=== PATIENT | female | born 1990 | race Caucasian/White ===

== ENCOUNTER 2016-11-01 14:11 | Emergency (ER) | payer MEDICAID, MEDICARE, OTHER ==
--- NOTE | 2016-11-01 14:34 | EDM.PDOC ---
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 This afternoon, she was going down stairs when she missed a step and fell about 8-10 steps stopping at the landing. There was no LOC. There is some residual pain and stiffness in the neck and midback, with more pain in the R knee. Upon arrival, she is alert, orientated and cooperative, GCS 15. - Related Data Allergies Allergy/AdvReac Type Severity Reaction Status Date / Time haloperidol [From Haldol] Allergy Other Verified 02/17/16 10:20 haloperidol lactate Allergy Other Verified 02/17/16 10:20 [From Haldol] paliperidone [From Invega] Allergy Itching Verified 11/26/15 08:11 sulfamethoxazole Allergy Itching Verified 11/26/15 08:11 [From Bactrim] trimethoprim [From Bactrim] Allergy Itching Verified 11/26/15 08:11 ziprasidone HCl [From Geodon] Allergy Itching Verified 11/26/15 08:11 ziprasidone mesylate Allergy Itching Verified 11/26/15 08:11 [From Geodon] Home Meds: Home Meds Albuterol [Ventolin HFA] 1 - 2 puff INH Q4HR PRN 11/25/15 [History] Cholecalciferol (Vitamin D3) [Vitamin D3] 3,000 unit PO DAILY 11/25/15 [History] Cranberry Extract [Cranberry] 500 mg PO BID 11/25/15 [History] Fluticasone/Salmeterol [Advair Diskus 100-50] 1 puff INH BID 11/25/15 [History] Lactobac No.21/Bifidobact No.6 [Up & Up Probiotic Supplement] 1 each PO DAILY [History] Levonorgestrel [Mirena] 1 each IY ASDIRECTED 11/25/15 [History] Levothyroxine 75 mcg PO ACBREAKFAST 11/25/15 [History] Tornillo Carbonate 600 mg PO BID 11/25/15 [History] Montelukast [Singulair] 10 mg PO BEDTIME 11/25/15 [History] Nystatin 1 each TOP BID 11/25/15 [History] Pantoprazole [ProTONIX] 40 mg PO BIDAC 11/25/15 [History] QUEtiapine [SEROquel] 75 mg PO BID 11/25/15 [History] QUEtiapine [SEROquel] 250 mg PO BEDTIME 11/25/15 [History] Sertraline [Zoloft] 150 mg PO DAILY 11/25/15 [History] busPIRone [Buspar] 20 mg PO TID 11/25/15 [History] diphenhydrAMINE [Benadryl] 50 mg PO BEDTIME 11/25/15 [History] metFORMIN [Glucophage] 500 mg PO BIDMEALS 11/25/15 [History] Loratadine/Pseudoephedrine [Qc Loratadine-D 24Hr Tablet] 10 mg PO DAILY [History] Methylcellulose (with Sugar) [Citrucel] 1 tbsp PO DAILY 02/17/16 [History] Triamcinolone Acetonide [IJD: Triamcinolone Acetonide 0.1% Crm] 1 applic TOP BID PRN 02/17/16 [History] Urea [Ureacin-20] 1 applic TOP DAILY PRN 02/17/16 [History] Acetaminophen [Tylenol] 650 mg PO ASDIRECTED PRN 02/18/16 [History] Acetaminophen with Codeine [Tylenol with Codeine #3 Tablet] 2 each PO Q4HR PRN # 30 tablet 02/18/16 [Rx] Docusate Sodium [Colace] 100 mg PO BID PRN #20 cap 02/18/16 [Rx] Past Medical History HEENT History: Reports: Allergic Rhinitis, Impaired Vision, Other (See Below) Other HEENT History: EXOTROPIA, ASTIGMATISM, MYOPIA Cardiovascular History: Reports: None Respiratory History: Reports: Asthma, Sleep Apnea Gastrointestinal History: Reports: Cholelithiasis, GERD, Other (See Below) Other Gastrointestinal History: CHRONIC RLQ ABD PAIN, DIARRHEA, VOMITING Genitourinary History: Reports: UTI, Recurrent, Other (See Below) Other Genitourinary History: ABNORMAL URINE FINDINGS; HAS HAD IUD PLACEMENT [employer] History: Reports: Polycystic Ovaries Musculoskeletal History: Reports: None Neurological History: Reports: Other (See Below) Other Neuro History: MRI OF BRAIN UNDER SEDATION Psychiatric History: Reports: Bipolar, Schizophrenia, Suicidal Ideation, Other ( See Below) Other Psychiatric History: SCHIZOPHRENIFORM DISORDER, MALINGERING Endocrine/Metabolic History: Reports: Hypothyroidism Hematologic History: Reports: Anemia Immunologic History: Reports: None Oncologic (Cancer) History: Reports: None Dermatologic History: Reports: None - Infectious Disease History Infectious Disease History: Reports: Chicken Pox - Past Surgical History Head Surgeries/Procedures: HEENT Surgical History: Reports: Oral Surgery, Tonsillectomy, Other (See Below) Female Surgical History: Reports: Other (See Below) Social & Family History - Family History Other GI Family History: SEE HX - Tobacco Use Smoking Status *Q: Never Smoker ED ROS GENERAL - Review of Systems Review Of Systems: See Below Constitutional: Reports: No Symptoms HEENT: Reports: No Symptoms Respiratory: Reports: No Symptoms Cardiovascular: Reports: No Symptoms Endocrine: Reports: No Symptoms GI/Abdominal: Reports: No Symptoms : Reports: No Symptoms Musculoskeletal: Reports: Neck Pain (minor stiffness of neck right side), Back Pain (midback pain), Leg Pain (right knee) Skin: Reports: No Symptoms Neurological: Reports: No Symptoms Psychiatric: Reports: No Symptoms Hematologic/Lymphatic: Reports: No Symptoms Immunologic: Reports: No Symptoms ED EXAM, GENERAL - Physical Exam Exam: See Below Exam Limited By: No Limitations General Appearance: Alert, WD/WN, Anxious, Mild Distress Eye Exam: Bilateral Eye: Normal Inspection, PERRL Ears: Normal External Exam, Normal TMs Nose: Normal Inspection Throat/Mouth: Normal Inspection, Normal Oropharynx Head: Atraumatic, Normocephalic Neck: Normal Inspection, Supple, Full Range of Motion, Tender Lateral (mild on the right side) Respiratory/Chest: Lungs Clear, Normal Breath Sounds, Chest Non-Tender Cardiovascular: Regular Rate, Rhythm, No Murmur GI/Abdominal: Normal Bowel Sounds, Soft, Non-Tender, No Organomegaly, No Distention, No Mass, Pelvis Stable (Female) Exam: Deferred Rectal (Female) Exam: Deferred Back Exam: Normal Inspection, Vertebral Tenderness (T11-L1 midline) Extremities: Normal Inspection, Leg Pain (R knee, no joint effusion, no instability to maneuver), Limited Range of Motion Neurological: Alert, Oriented, CN II-XII Intact, No Motor/Sensory Deficits Psychiatric: Normal Affect, Anxious Skin Exam: Warm, Dry, Intact Lymphatic: No Adenopathy Course - Vital Signs Text/Narrative:: Caitlyn remained stable at the [facility] ED. X rays of the cervical spine, thoracic spine, lumbar spine, R hip and R knee were negative for fx or deformity. A contusion to R knee is suspected, and she was fitted with crutches and administered Tylenol 650 for pain. - Orders/Labs/Meds Orders: Active Orders 24 hr Category Date Time Status Cervical Spine 2V or 3V [CR] Stat Exams 11/01/16 14:25 Taken Hip Min 2V or 3V Rt [CR] Stat Exams 11/01/16 14:25 Taken Knee 1V or 2V Rt [CR] Stat Exams 11/01/16 14:25 Taken Lumbar Spine 2 or 3V [CR] Stat Exams 11/01/16 14:25 Taken Thoracic Spine 2V [CR] Stat Exams 11/01/16 14:25 Taken BASIC METABOLIC PANEL,BMP [CHEM] Stat Lab 11/01/16 14:25 Ordered CBC WITH AUTO DIFF [HEME] Stat Lab 11/01/16 14:25 Ordered UA W/MICROSCOPIC [URIN] Stat Lab 11/01/16 14:25 Uncollected Departure - Departure Time of Disposition: 15:25 Disposition: Home, Self-Care 01 Condition: fair Clinical Impression: Contusion, multiple sites - Discharge Information - Problem List & Annotations (1) Contusion, multiple sites SNOMED Code(s): 578302902 Code(s): T14.8 - OTHER INJURY OF UNSPECIFIED BODY REGION Status: Acute Current Visit: Yes Annotation/Comment:: I provided a medical leave from work for her, advised crutches with touch wt bearing and advance as tolerated, and follow up with PCP. - Problem List Review Problem List Initiated/Reviewed/Updated: Yes - My Orders Last 24 Hours: My Active Orders 11/01/16 14:25 Cervical Spine 2V or 3V [CR] Stat Hip Min 2V or 3V Rt [CR] Stat Knee 1V or 2V Rt [CR] Stat Lumbar Spine 2 or 3V [CR] Stat Thoracic Spine 2V [CR] Stat BASIC METABOLIC PANEL,BMP [CHEM] Stat CBC WITH AUTO DIFF [HEME] Stat UA W/MICROSCOPIC [URIN] Stat - Assessment/Plan Last 24 Hours: My Active Orders 11/01/16 14:25 Cervical Spine 2V or 3V [CR] Stat Hip Min 2V or 3V Rt [CR] Stat Knee 1V or 2V Rt [CR] Stat Lumbar Spine 2 or 3V [CR] Stat Thoracic Spine 2V [CR] Stat BASIC METABOLIC PANEL,BMP [CHEM] Stat CBC WITH AUTO DIFF [HEME] Stat UA W/MICROSCOPIC [URIN] Stat Plan: Follow up with PCP.
[2016-11-01] MEDS ORDERED: Acetaminophen 325 MG Tab PO ONE (15:15)
--- NOTE | 2016-11-01 15:29 | CR ---
INDICATION: Fall down flight of stairs. RIGHT KNEE: Frontal and lateral views of the right knee revealed no evidence of a fracture, dislocation, or other significant bone or joint abnormality. PEPITO
--- NOTE | 2016-11-01 15:30 | CR ---
INDICATION: Fall down flight of stairs. RIGHT HIP: Frontal and lateral views of the right hip revealed no evidence of an acute fracture, dislocation, or other significant bone or joint abnormality. IMPRESSION: Normal right hip. MTDD
--- NOTE | 2016-11-01 15:32 | CR ---
INDICATION: Fall down flight of stairs. CERVICAL SPINE: Five views of the cervical spine were obtained. The odontoid appeared to be normal - intact. Some straightening of the normal cervical lordosis may be positional. Vertebral body and disk heights appear to be maintained. Prevertebral space and bone density appear to be normal. No fracture or dislocation was identified. IMPRESSION: No acute fracture or dislocation. Essentially normal cervical spine. MTDD
--- NOTE | 2016-11-01 15:35 | CR ---
INDICATION: Fall down flight of stairs. THORACIC SPINE: Frontal and lateral views of the thoracic spine were utilized to evaluate the thoracic spine, including a lateral view of the cervical spine, which included the upper thoracic spine. A very minimal dextroconvex scoliosis at the lower thoracic spine is noted. The pedicles appear to be intact. Vertebral body and disk heights were maintained. A fracture or dislocation is not identified. IMPRESSION: 1. No acute fracture or dislocation. 2. Very minimal scoliosis. MTDD
--- NOTE | 2016-11-01 15:40 | CR ---
INDICATION: Fall down flight of stairs. LUMBOSACRAL SPINE: Four views of the lumbosacral spine were obtained and revealed slightly decreased disk space at L5-S1, suggesting the possibility of disk disease at that level. There is also a slight loss of disk space at L4-5, compared with L3-4, suggesting very minimal disk disease at L4-5. No significant hypertrophic degenerative changes were identified. The pedicles appear to be intact. The remainder of the vertebral body and disk heights was maintained. A fracture or dislocation was not identified. Incidentally noted was an intrauterine device to the left of midline overlying the lower sacrum. IMPRESSION: 1. No acute fracture or dislocation. 2. Possible disk disease L4-5 and L5-S1. 3. IUD in place. MTDD
[2016-11-01 16:16] VITALS: BP 130/72
== END 2016-11-01 16:23 | disposition home or self-care (01) ==
LOC: FB.ED 14:11
DX: T14.8 Other injury of unspecified body region (principal); M54.2 Cervicalgia; M54.6 Pain in thoracic spine; M25.561 Pain in right knee; Z88.6 Allergy status to analgesic agent; Z88.2 Allergy status to sulfonamides; Z88.1 Allergy status to other antibiotic agents; Z88.8 Allergy status to other drugs, medicaments and biological substances; Z79.899 Other long term (current) drug therapy; W10.9XXA Fall (on) (from) unspecified stairs and steps, initial encounter
CPT/HCPCS: 36415; 72040; 72070; 72100; 73502; 73560; 80048; 81001; 85025; 99284; A9270

== ENCOUNTER 2022-09-01 21:25 | Emergency (ER) | payer MEDICARE, MEDICAID ==
[2022-09-01 21:49] VITALS: BP 130/73; PULSE 87
[2022-09-01] MEDS ORDERED: Aspirin 81 MG Tab.Chew PO ONE (22:35)
[2022-09-01 23:08] LABS: ESTIMATED GFR 76 mL/min (>60)
== END 2022-09-02 00:44 | disposition home or self-care (01) ==
LOC: FB.ED 21:25
DX: R07.89 Other chest pain (principal); J45.909 Unspecified asthma, uncomplicated; K21.9 Gastro-esophageal reflux disease without esophagitis; E03.9 Hypothyroidism, unspecified; Z88.8 Allergy status to other drugs, medicaments and biological substances; Z88.2 Allergy status to sulfonamides; Z79.899 Other long term (current) drug therapy; Z79.84 Long term (current) use of oral hypoglycemic drugs
CPT/HCPCS: 36415; 71045; 80053; 83735; 84484; 85025; 85379; 93005; 99285; A9270-GY

== ENCOUNTER 2023-03-30 21:26 | Emergency (ER) | payer MEDICARE, MEDICAID ==
[2023-03-30 22:07] LABS: BASOPHILS ABSOLUTE AUTO 0.1 x10-3/uL (0.0-0.1); BASOPHILS PERCENT AUTO 0.6 % (0.2-1.5); EOSINOPHILS ABSOLUTE AUTO 0.3 x10-3/uL (0.0-0.8); EOSINOPHILS PERCENT AUTO 3.4 % (0.6-8.1); HEMOGLOBIN 13.2 g/dL (11.4-15.5); LYMPHOCYTES ABSOLUTE AUTO 3.6 x10-3/uL (1.0-4.4); LYMPHOCYTES PERCENT AUTO 41.7 % (18.4-52.1); MEAN CORPUSCULAR HEMOGLOBIN 29.1 pg (23.9-33.9); MEAN CORPUSCULAR HGB CONC 32.9 g/dL (31.9-34.8); MEAN CORPUSCULAR VOLUME 88.4 fL (76.7-100.5); MONOCYTES ABSOLUTE AUTO 0.7 x10-3/uL (0.3-1.0); MONOCYTES PERCENT AUTO 8.2 % (4.4-15.7); NEUTROPHILS PERCENT AUTO 46.1 % (30.8-76.2); PLATELET COUNT,PLT 491 x10(3)uL (151-488); RED BLOOD CELL COUNT 4.52 x10(6)uL (3.60-5.20); RED CELL DISTRIBUTION WIDTH 14.5 % (12.3-16.5); WHITE BLOOD CELL COUNT,WBC 8.7 x10-3/uL (3.0-10.3)
[2023-03-30 22:11] LABS: BLOOD UREA NITROGEN,BUN 18 mg/dL (7-18); CALCIUM 8.8 mg/dL (8.6-10.2); CARBON DIOXIDE,CO2 27 mmol/L (21-32); CHLORIDE,CL 108 mmol/L (100-110); ESTIMATED GFR 76 mL/min (>60); GLUCOSE RANDOM 99 mg/dL (80-116); POTASSIUM,K 3.8 mmol/L (3.5-5.3); SODIUM,NA 141 mmol/L (135-145)
[2023-03-30 22:17] LABS: A/G RATIO 0.8; ALANINE AMINOTRANSFERASE,ALT 24 U/L (12-36); ALBUMIN 3.1 g/dL (3.5-5.2); ALKALINE PHOSPHATASE 97 IU/L (56-112); ASPARTATE AMNIOTRANSFERASE,AST 12 IU/L (5-25); BILIRUBIN TOTAL 0.2 mg/dL (0.1-1.3); PROTEIN TOTAL,TP 7.1 g/dL (6.0-8.0)
[2023-03-30 22:24] LABS: C-REACTIVE PROTEIN 0.39 mg/dL (<0.33)
[2023-03-30 22:35] LABS: BILIRUBIN,URINE NEGATIVE (NEGATIVE); GLUCOSE,URINE NORMAL (NORMAL); KETONES,URINE NEGATIVE (NEGATIVE); LEUKOCYTE ESTERASE,URINE SMALL (NEGATIVE); NITRITE,URINE NEGATIVE (NEGATIVE); OCCULT BLOOD,URINE NEGATIVE (NEGATIVE); PROTEIN,URINE NEGATIVE (NEGATIVE); UROBILINOGEN,URINE NORMAL (NEGATIVE)
[2023-03-30 22:36] LABS: APPEARANCE,URINE CLEAR (CLEAR); BACTERIA,URINE RARE (NS); COLOR,URINE YELLOW (YELLOW); RBC,URINE NOT SEEN (0-5); SQUAMOUS EPITHELIAL CELLS,UR RARE (NS,R,O); WBC,URINE 0-5 (0-5)
[2023-03-30] MEDS ORDERED: Magnesium Sulfate/Water 2 GM in Premix Bag 1 BAG IV ONE (23:56)
[2023-03-31 09:10] VITALS: BP 135/56; PULSE 90
[2023-04-01 17:18] LABS: LITHIUM, SERUM OR PLASMA 0.5 mmol/L (0.5-1.2)
== END 2023-03-31 01:45 | disposition home or self-care (01) ==
LOC: FB.ED 21:26
DX: R55 Syncope and collapse (principal); I44.0 Atrioventricular block, first degree; D75.839 Thrombocytosis, unspecified; E83.42 Hypomagnesemia; R79.82 Elevated C-reactive protein (CRP); B34.9 Viral infection, unspecified; K21.9 Gastro-esophageal reflux disease without esophagitis; E03.9 Hypothyroidism, unspecified; Z90.49 Acquired absence of other specified parts of digestive tract; Z79.899 Other long term (current) drug therapy; Z88.8 Allergy status to other drugs, medicaments and biological substances; Z88.5 Allergy status to narcotic agent; Z88.2 Allergy status to sulfonamides
CPT/HCPCS: 36415; 70450; 80053; 80178; 81001; 83735; 83880; 84443; 84484; 85025; 85379; 86140; 93005; 93010; 96365; 99284; 99284-25; J3475

== ENCOUNTER 2023-05-30 17:47 | Emergency (ER) | payer MEDICARE, MEDICAID ==
[2023-05-30 18:39] LABS: BASOPHILS ABSOLUTE AUTO 0.1 x10-3/uL (0.0-0.1); BASOPHILS PERCENT AUTO 0.6 % (0.2-1.5); EOSINOPHILS ABSOLUTE AUTO 0.3 x10-3/uL (0.0-0.8); EOSINOPHILS PERCENT AUTO 3.5 % (0.6-8.1); HEMATOCRIT 42.9 % (34.2-48.2); HEMOGLOBIN 14.2 g/dL (11.4-15.5); LYMPHOCYTES ABSOLUTE AUTO 3.3 x10-3/uL (1.0-4.4); LYMPHOCYTES PERCENT AUTO 39.8 % (18.4-52.1); MEAN CORPUSCULAR HEMOGLOBIN 29.5 pg (23.9-33.9); MEAN CORPUSCULAR HGB CONC 33.1 g/dL (31.9-34.8); MEAN CORPUSCULAR VOLUME 89.1 fL (76.7-100.5); MEAN PLATELET VOLUME 8.1 fL (7.1-12.4); MONOCYTES ABSOLUTE AUTO 0.8 x10-3/uL (0.3-1.0); MONOCYTES PERCENT AUTO 9.3 % (4.4-15.7); NEUTROPHILS ABSOLUTE AUTO 3.9 x10-3/uL (1.5-6.3); NEUTROPHILS PERCENT AUTO 46.8 % (30.8-76.2); PLATELET COUNT,PLT 491 x10(3)uL (151-488); RED BLOOD CELL COUNT 4.82 x10(6)uL (3.60-5.20); RED CELL DISTRIBUTION WIDTH 14.6 % (12.3-16.5); WHITE BLOOD CELL COUNT,WBC 8.3 x10-3/uL (3.0-10.3)
[2023-05-30 18:43] LABS: BLOOD UREA NITROGEN,BUN 13 mg/dL (7-18); CALCIUM 9.6 mg/dL (8.6-10.2); CARBON DIOXIDE,CO2 29 mmol/L (21-32); CHLORIDE,CL 109 mmol/L (100-110); ESTIMATED GFR 76 mL/min (>60); GLUCOSE RANDOM 113 mg/dL (80-116); POTASSIUM,K 3.6 mmol/L (3.5-5.3); SODIUM,NA 144 mmol/L (135-145)
[2023-05-30 18:49] LABS: A/G RATIO 0.9; ALANINE AMINOTRANSFERASE,ALT 29 U/L (12-36); ALBUMIN 3.7 g/dL (3.5-5.2); ALKALINE PHOSPHATASE 102 IU/L (56-112); ASPARTATE AMNIOTRANSFERASE,AST 13 IU/L (5-25); BILIRUBIN TOTAL 0.2 mg/dL (0.1-1.3); PROTEIN TOTAL,TP 7.8 g/dL (6.0-8.0); SALICYLATE 1.3 mg/dL (<2.8)
[2023-05-30 18:57] LABS: ETHANOL BLOOD MEDICAL < 0.03 % (<0.03); HCG QUANTITATIVE < 5 mIU/mL (<5)
[2023-05-30 19:07] LABS: AMPHETAMINES SCREEN, URINE NEGATIVE (NEGATIVE); BARBITURATE SCREEN,URINE NEGATIVE (NEGATIVE); BENZODIAZEPINES SCREEN,URINE NEGATIVE (NEGATIVE); BUPRENORPHINE SCREEN,URINE NEGATIVE (NEGATIVE); METHADONE SCREEN, URINE NEGATIVE (NEGATIVE); METHAMPHETAMINE SCREEN, URINE NEGATIVE (NEGATIVE); OXYCODONE SCREEN,URINE NEGATIVE (NEGATIVE); THC SCREEN,URINE NEGATIVE (NEGATIVE)
[2023-05-30 19:25] LABS: ACETAMINOPHEN < 2 ug/mL (<2)
[2023-05-31] MEDS ORDERED: Sertraline 50 MG Tab PO ONE (07:39)
[2023-05-31] MEDS ORDERED: Lithium Carbonate 300 MG Cap PO ONE (07:41)
[2023-05-31] MEDS ORDERED: metFORMIN 500 MG Tab.ER PO ONE (07:42)
[2023-05-31] MEDS ORDERED: busPIRone 10 MG Tab PO ONE (07:47)
[2023-05-31] MEDS ORDERED: Magnesium Oxide 400 MG Tab PO ONE (07:47)
[2023-05-31] MEDS ORDERED: Cholecalciferol (Vitamin D3) 5,000 UNIT Cap PO ONE (07:49)
[2023-05-31] MEDS ORDERED: Cholecalciferol (Vitamin D3) 25 MCG Tab PO ONE (08:00)
[2023-05-31] MEDS ORDERED: Pantoprazole 40 MG Tab.CR PO ONE (08:00)
[2023-05-31 08:30] VITALS: BP 114/70; PULSE 73
[2023-06-01] MEDS ORDERED: Levothyroxine 75 MCG Tab PO ONE (07:41)
[2023-06-01] MEDS ORDERED: Pantoprazole 20 MG Tab, Delayed Release PO ONE (07:42)
== END 2023-05-31 08:26 ==
LOC: FB.ED 17:47
DX: R45.851 Suicidal ideations (principal); J45.909 Unspecified asthma, uncomplicated; K21.9 Gastro-esophageal reflux disease without esophagitis; E03.9 Hypothyroidism, unspecified; Z88.8 Allergy status to other drugs, medicaments and biological substances; Z88.2 Allergy status to sulfonamides; Z79.899 Other long term (current) drug therapy; Z20.822 Contact with and (suspected) exposure to COVID-19
CPT/HCPCS: 36415; 80053; 80143; 80179; 80307; 84443; 84702; 85025; 99285; A9270-GY; U0002

== ENCOUNTER 2023-08-15 17:01 | Emergency (ER) | payer MEDICARE, MEDICAID ==
[2023-08-15 17:23] VITALS: BP 125/68; PULSE 76
[2023-08-15] MEDS: Sodium Chloride 0.9% 10 ML Syringe FLUSH PRN (17:45)
[2023-08-15 17:48] LABS: BASOPHILS ABSOLUTE AUTO 0.1 x10-3/uL (0.0-0.1); BASOPHILS PERCENT AUTO 0.4 % (0.2-1.5); EOSINOPHILS ABSOLUTE AUTO 0.2 x10-3/uL (0.0-0.8); EOSINOPHILS PERCENT AUTO 1.2 % (0.6-8.1); HEMATOCRIT 41.6 % (34.2-48.2); HEMOGLOBIN 13.7 g/dL (11.4-15.5); LYMPHOCYTES PERCENT AUTO 31.1 % (18.4-52.1); MEAN CORPUSCULAR HEMOGLOBIN 29.4 pg (23.9-33.9); MEAN CORPUSCULAR VOLUME 89.1 fL (76.7-100.5); MONOCYTES PERCENT AUTO 7.7 % (4.4-15.7); NEUTROPHILS ABSOLUTE AUTO 7.7 x10-3/uL (1.5-6.3); NEUTROPHILS PERCENT AUTO 59.6 % (30.8-76.2); PLATELET COUNT,PLT 455 x10(3)uL (151-488); RED BLOOD CELL COUNT 4.67 x10(6)uL (3.60-5.20); RED CELL DISTRIBUTION WIDTH 14.8 % (12.3-16.5); WHITE BLOOD CELL COUNT,WBC 12.8 x10-3/uL (3.0-10.3)
[2023-08-15 17:53] LABS: BLOOD UREA NITROGEN,BUN 16 mg/dL (7-18); BUN/CREATININE RATIO 14.5 (9-20); CALCIUM 9.3 mg/dL (8.6-10.2); CARBON DIOXIDE,CO2 23 mmol/L (21-32); CHLORIDE,CL 106 mmol/L (100-110); CREATININE 1.1 mg/dL (0.55-1.02); EST CRCL DRUG DOSING (CG) 64.84 mL/min; ESTIMATED GFR 68 mL/min (>60); GLUCOSE RANDOM 87 mg/dL (80-116); POTASSIUM,K 3.4 mmol/L (3.5-5.3); SODIUM,NA 142 mmol/L (135-145)
[2023-08-15 18:04] LABS: A/G RATIO 0.9; ALANINE AMINOTRANSFERASE,ALT 25 U/L (12-36); ALBUMIN 3.7 g/dL (3.5-5.2); ALKALINE PHOSPHATASE 89 IU/L (56-112); ASPARTATE AMNIOTRANSFERASE,AST 17 IU/L (5-25); BILIRUBIN TOTAL 0.5 mg/dL (0.1-1.3); MAGNESIUM 2.2 mg/dL (1.8-2.5); PROTEIN TOTAL,TP 7.9 g/dL (6.0-8.0)
[2023-08-15 18:16] LABS: BILIRUBIN,URINE NEGATIVE (NEGATIVE); GLUCOSE,URINE NORMAL (NORMAL); KETONES,URINE NEGATIVE (NEGATIVE); LEUKOCYTE ESTERASE,URINE LARGE (NEGATIVE); NITRITE,URINE NEGATIVE (NEGATIVE); OCCULT BLOOD,URINE MODERATE (NEGATIVE); PROTEIN,URINE NEGATIVE (NEGATIVE); UROBILINOGEN,URINE NORMAL (NEGATIVE)
[2023-08-15] MEDS: Sodium Chloride 0.9% 1,000 ML IV ONE (18:21)
[2023-08-15 18:22] LABS: APPEARANCE,URINE SLIGHTLY CLOUDY (CLEAR); BACTERIA,URINE FEW (NS); COLOR,URINE YELLOW (YELLOW); RBC,URINE 0-5 (0-5); SQUAMOUS EPITHELIAL CELLS,UR FEW (NS,R,O)
[2023-08-15] MEDS: Cephalexin 500 MG Cap PO ONE (20:25)
== END 2023-08-15 20:52 | disposition home or self-care (01) ==
LOC: FB.ED 17:01
DX: S00.83XA Contusion of other part of head, initial encounter (principal); N39.0 Urinary tract infection, site not specified; K92.1 Melena; R55 Syncope and collapse; E86.0 Dehydration; K62.89 Other specified diseases of anus and rectum; K21.9 Gastro-esophageal reflux disease without esophagitis; E03.9 Hypothyroidism, unspecified; Z88.8 Allergy status to other drugs, medicaments and biological substances; Z88.2 Allergy status to sulfonamides; Z86.19 Personal history of other infectious and parasitic diseases; Z90.49 Acquired absence of other specified parts of digestive tract; Z79.899 Other long term (current) drug therapy; X58.XXXA Exposure to other specified factors, initial encounter
CPT/HCPCS: 70450; 80053; 81001; 81025; 83735; 84484; 85025; 87086; 87088; 87186; 93005; 96360; 99284-25; A9270-GY; J3490; J7030

== ENCOUNTER 2023-09-22 07:39 | Day surgery (SDC) | payer MEDICARE, MEDICAID ==
[~2023-09-22 07:39] MED LIST: Sodium Chloride 0.9% 10 ML Syringe FLUSH PRN
[2023-09-22] MEDS ORDERED: Midazolam 1 MG/ML 2 ML SDV IV ONE (07:40)
[2023-09-22] MEDS ORDERED: fentaNYL 100 MCG/2 ML SDV IV ONE (07:40)
[2023-09-22] MEDS ORDERED: Propofol 200 MG/20 ML SDV IV ONE (07:40)
[2023-09-22] MEDS: Lactated Ringers 1,000 ML IV SCH (08:29)
[2023-09-22] MEDS: Albuterol/Ipratropium 3.0-0.5 MG/3 ML Neb Soln NEB ONE (08:35)
[2023-09-22 12:11] VITALS: BP 109/68; PULSE 55
== END 2023-09-22 10:57 | disposition home or self-care (01) ==
LOC: FB.SDS 07:39
PROVIDERS: ATTEND Surgery
DX: D12.6 Benign neoplasm of colon, unspecified (principal); F41.9 Anxiety disorder, unspecified; K21.9 Gastro-esophageal reflux disease without esophagitis; J45.20 Mild intermittent asthma, uncomplicated; E03.9 Hypothyroidism, unspecified; Z86.010 Personal history of colon polyps; Z79.890 Hormone replacement therapy; Z79.899 Other long term (current) drug therapy; Z88.2 Allergy status to sulfonamides; Z88.8 Allergy status to other drugs, medicaments and biological substances
CPT/HCPCS: 00811; 81025; 88305; J2250; J2704; J3010; J7120; J7620

== ENCOUNTER 2024-11-08 18:28 | Emergency (ER) | payer MEDICARE, MEDICAID ==
[2024-11-08 18:44] VITALS: BP 105/69; PULSE 95
[2024-11-08] MEDS: Aspirin 81 MG Tab.Chew PO ONE (18:55)
[2024-11-08 19:09] LABS: BASOPHILS ABSOLUTE AUTO 0.1 x10-3/uL (0.0-0.1); BASOPHILS PERCENT AUTO 0.7 % (0.2-1.5); EOSINOPHILS ABSOLUTE AUTO 0.4 x10-3/uL (0.0-0.8); EOSINOPHILS PERCENT AUTO 4.9 % (0.6-8.1); HEMATOCRIT 41.8 % (34.2-48.2); HEMOGLOBIN 13.9 g/dL (11.4-15.5); LYMPHOCYTES ABSOLUTE AUTO 3.7 x10-3/uL (1.0-4.4); LYMPHOCYTES PERCENT AUTO 42.6 % (18.4-52.1); MEAN CORPUSCULAR HEMOGLOBIN 29.8 pg (23.9-33.9); MEAN CORPUSCULAR HGB CONC 33.2 g/dL (31.9-34.8); MEAN CORPUSCULAR VOLUME 89.7 fL (76.7-100.5); MEAN PLATELET VOLUME 7.8 fL (7.1-12.4); MONOCYTES ABSOLUTE AUTO 0.8 x10-3/uL (0.3-1.0); MONOCYTES PERCENT AUTO 9.1 % (4.4-15.7); NEUTROPHILS ABSOLUTE AUTO 3.7 x10-3/uL (1.5-6.3); NEUTROPHILS PERCENT AUTO 42.7 % (30.8-76.2); PLATELET COUNT,PLT 478 x10(3)uL (151-488); RED BLOOD CELL COUNT 4.66 x10(6)uL (3.60-5.20); RED CELL DISTRIBUTION WIDTH 14.5 % (12.3-16.5); WHITE BLOOD CELL COUNT,WBC 8.6 x10-3/uL (3.0-10.3)
[2024-11-08 19:15] LABS: BLOOD UREA NITROGEN,BUN 16 mg/dL (7-18); BUN/CREATININE RATIO 10.7 (9-20); CALCIUM 9.7 mg/dL (8.6-10.2); CARBON DIOXIDE,CO2 28 mmol/L (21-32); CHLORIDE,CL 105 mmol/L (100-110); CREATININE 1.5 mg/dL (0.55-1.02); ESTIMATED GFR 46 mL/min (>60); GLUCOSE RANDOM 94 mg/dL (80-116); POTASSIUM,K 4.1 mmol/L (3.5-5.3); SODIUM,NA 140 mmol/L (135-145)
[2024-11-08 19:21] LABS: A/G RATIO 0.9; ALANINE AMINOTRANSFERASE,ALT 26 U/L (12-36); ALBUMIN 3.6 g/dL (3.5-5.2); ALKALINE PHOSPHATASE 121 IU/L (56-112); ASPARTATE AMNIOTRANSFERASE,AST 11 IU/L (5-25); BILIRUBIN TOTAL 0.2 mg/dL (0.1-1.3); PROTEIN TOTAL,TP 7.6 g/dL (6.0-8.0)
== END 2024-11-08 22:02 | disposition home or self-care (01) ==
LOC: FB.ED 18:28
DX: R07.89 Other chest pain (principal); E03.9 Hypothyroidism, unspecified; K21.9 Gastro-esophageal reflux disease without esophagitis; Z88.8 Allergy status to other drugs, medicaments and biological substances; Z88.2 Allergy status to sulfonamides; Z79.899 Other long term (current) drug therapy; Z79.890 Hormone replacement therapy
CPT/HCPCS: 36415; 71045; 80053; 83735; 84484; 85025; 85379; 93005; 99285; A9270-GY

== ENCOUNTER 2025-03-07 16:01 | Emergency (ER) | payer MEDICARE, MEDICAID ==
[2025-03-07 17:18] LABS: BASOPHILS ABSOLUTE AUTO 0.1 x10-3/uL (0.0-0.1); BASOPHILS PERCENT AUTO 0.8 % (0.2-1.5); EOSINOPHILS ABSOLUTE AUTO 0.3 x10-3/uL (0.0-0.8); EOSINOPHILS PERCENT AUTO 3.9 % (0.6-8.1); LYMPHOCYTES ABSOLUTE AUTO 3.3 x10-3/uL (1.0-4.4); LYMPHOCYTES PERCENT AUTO 41.7 % (18.4-52.1); MEAN PLATELET VOLUME 7.8 fL (7.1-12.4); MONOCYTES ABSOLUTE AUTO 0.7 x10-3/uL (0.3-1.0); MONOCYTES PERCENT AUTO 9.2 % (4.4-15.7); NEUTROPHILS ABSOLUTE AUTO 3.5 x10-3/uL (1.5-6.3); NEUTROPHILS PERCENT AUTO 44.4 % (30.8-76.2); PLATELET COUNT,PLT 505 x10(3)uL (151-488); RED BLOOD CELL COUNT 4.77 x10(6)uL (3.60-5.20); RED CELL DISTRIBUTION WIDTH 14.4 % (12.3-16.5); WHITE BLOOD CELL COUNT,WBC 7.9 x10-3/uL (3.0-10.3)
[2025-03-07 17:24] LABS: GLUCOSE,URINE NORMAL (NORMAL); OCCULT BLOOD,URINE NEGATIVE (NEGATIVE)
[2025-03-07 17:24] LABS: BLOOD UREA NITROGEN,BUN 19 mg/dL (7-18); CARBON DIOXIDE,CO2 27 mmol/L (21-32); CHLORIDE,CL 108 mmol/L (100-110); CREATININE 1.3 mg/dL (0.55-1.02); EST CRCL DRUG DOSING (CG) 52.16 mL/min; ESTIMATED GFR 55 mL/min (>60); GLUCOSE RANDOM 95 mg/dL (80-116); POTASSIUM,K 3.8 mmol/L (3.5-5.3); SODIUM,NA 142 mmol/L (135-145)
[2025-03-07 17:28] LABS: A/G RATIO 0.8; ALANINE AMINOTRANSFERASE,ALT 24 U/L (12-36); ASPARTATE AMNIOTRANSFERASE,AST 11 IU/L (5-25); BILIRUBIN TOTAL 0.2 mg/dL (0.1-1.3); PROTEIN TOTAL,TP 8.0 g/dL (6.0-8.0)
[2025-03-07 17:33] LABS: METHAMPHETAMINE SCREEN, URINE NEGATIVE (NEGATIVE)
[2025-03-07 17:34] LABS: AMPHETAMINES SCREEN, URINE NEGATIVE (NEGATIVE); BUPRENORPHINE SCREEN,URINE NEGATIVE (NEGATIVE); METHADONE SCREEN, URINE NEGATIVE (NEGATIVE); OXYCODONE SCREEN,URINE NEGATIVE (NEGATIVE)
[2025-03-07 18:12] LABS: APPEARANCE,URINE CLEAR (CLEAR); SQUAMOUS EPITHELIAL CELLS,UR FEW (NS,R,O)
[2025-03-07 21:15] VITALS: BP 132/75; PULSE 63
== END 2025-03-07 21:30 ==
LOC: FB.ED 16:01
DX: R44.0 Auditory hallucinations (principal); F32.A Depression, unspecified; R45.89 Other symptoms and signs involving emotional state; J45.909 Unspecified asthma, uncomplicated; K21.9 Gastro-esophageal reflux disease without esophagitis; E03.9 Hypothyroidism, unspecified; Z90.49 Acquired absence of other specified parts of digestive tract; Z88.8 Allergy status to other drugs, medicaments and biological substances; Z79.84 Long term (current) use of oral hypoglycemic drugs; Z79.890 Hormone replacement therapy; Z79.899 Other long term (current) drug therapy
CPT/HCPCS: 36415; 80053; 80143; 80179; 80307; 81001; 81025; 84443; 85025; 99285